=== PATIENT | female | born 1940 | race Hispanic/Latino ===

== ENCOUNTER 2018-02-09 13:00 | Observation (INO) | payer MEDICARE ==
[~2018-02-09] VITALS: Ht 157.5 cm; Wt 56.0 kg
[2018-02-16 10:49] VITALS: BP 135/51
[2018-02-16] MEDS ORDERED: CELE200 PO (11:10)
[2018-02-16] MEDS ORDERED: ASPI-555 PO (11:10)
[2018-02-16] MEDS ORDERED: EZET10 PO (11:10)
[2018-02-20] VITALS (22 sets, daily range): BP systolic 112–149; BP diastolic 44–71
[2018-02-20] MEDS: CEFAZOLIN SODIUM 1 GM VIAL IVP SCH ×2 (06:00→07:30)
[2018-02-20] MEDS ORDERED: LIDOCAINE PF 2% 5ML ABBOJECT ONE (06:48)
[2018-02-20] MEDS ORDERED: MIDAZOLAM HCL 1 MG/ML 2ML VIAL ONE (06:48)
[2018-02-20] MEDS ORDERED: GLYCOPYRROLATE 1 MG/5 ML SYRINGE ONE (06:48)
[2018-02-20] MEDS ORDERED: PROPOFOL 10 MG/ML 20ML VIAL IV ONE (06:48)
[2018-02-20] MEDS ORDERED: NEOSTIGMINE 5MG/5ML SYR IV ONE (06:48)
[2018-02-20] MEDS ORDERED: DEXAMETHASONE SOD PHOSPHATE 10MG/ML 1ML VIAL ONE ×3 (06:48→08:22)
[2018-02-20] MEDS ORDERED: ROCURONIUM 10MG/1ML SYR 10 MG/ML ML ONE (06:49)
[2018-02-20] MEDS ORDERED: FENTANYL CITRATE PF 50 MCG/1 ML 2ML VIAL ONE ×2 (06:49→09:40)
[2018-02-20] MEDS ORDERED: ONDANSETRON HCL 4 MG/2 ML VIAL ONE (06:49)
[2018-02-20] MEDS ORDERED: LACTATED RINGERS 1000ML 1,000 ML IV ONE (06:52)
[2018-02-20] MEDS ORDERED: LIDOCAINE HCL 4% LTA SOL 4 ML VIAL ONE (06:52)
[2018-02-20] MEDS ORDERED: BACITRACIN 50,000 UNIT VIAL ONE (07:33)
[2018-02-20] MEDS ORDERED: THROMBIN-JMI 20000 UNIT KIT TP ONE (07:33)
[2018-02-20] MEDS ORDERED: BUPIVACAINE/EPI/PF 0.25% 50 ML VIAL ONE (07:33)
[2018-02-20] MEDS ORDERED: DURAMORPH PF1 MG/ML 10ML AMP IV ONE (07:33)
[2018-02-20] MEDS ORDERED: EPHEDRINE SULFATE 50 MG/ML AMPULE ONE (08:13)
[2018-02-20] MEDS: LACTATED RINGERS 1000ML 1,000 ML IV SCH ×2 (10:05→22:29)
[2018-02-20] MEDS ORDERED: MORPHINE SULFATE 2 MG/ML 1ML SYG IVP PRN (10:15)
[2018-02-20] MEDS ORDERED: CEFAZOLIN SODIUM 1 GM VIAL IVP SCH (10:15)
[2018-02-20] MEDS ORDERED: CELECOXIB 200 MG CAP PO PRN (10:15)
[2018-02-20] MEDS ORDERED: SODIUM CHLORIDE 0.9% 10 ML VIAL IVP PRN (10:15)
[2018-02-20] MEDS ORDERED: PROMETHAZINE HCL 25 MG/ML 1ML AMPULE IM PRN (10:15)
[2018-02-20] MEDS: DEXAMETHASONE SOD PHOSPHATE 4 MG/ML 1ML VIAL IVP SCH ×3 (12:46→20:19)
[2018-02-20] MEDS: HYDROCODONE/ACETAMINOPHEN 5/325 MG TAB PO PRN ×2 (15:42→22:29)
[2018-02-20] MEDS ORDERED: ASPIRIN 81MG TAB.CHEW PO SCH (21:00)
[2018-02-20] MEDS ORDERED: EZETIMIBE 10 MG TAB PO SCH (21:00)
[2018-02-21 03:35] VITALS: BP 117/48
[2018-02-21] MEDS: DEXAMETHASONE SOD PHOSPHATE 4 MG/ML 1ML VIAL IVP SCH (04:25)
[2018-02-21 07:45] VITALS: BP 133/68
== END 2018-02-21 10:35 | disposition home or self-care (01) ==
LOC: EDSTATUS 13:00 → EDHIP 02-20 05:46 → INTOOBSV 02-20 05:46 → DAHIP 02-20 08:56 → 4AH 02-20 10:17
PROVIDERS: ADMIT Neurological Surgery; ATTEND Neurological Surgery
DX: M48.061 Spinal stenosis, lumbar region without neurogenic claudication (principal); Z88.8 Allergy status to other drugs, medicaments and biological substances; Z79.899 Other long term (current) drug therapy
CPT/HCPCS: 63047; 63048; 72020; 96374; 96375; 96376 ×2; A4344; A4510; A4600; A4649 ×5; G0378 ×30; J0690 ×2; J1100 ×6; J2001; J2250; J2274; J2405; J2704; J2710; J3010 ×2; J3490 ×3; J7030; J7120 ×2